=== PATIENT | female | born 1970 | race Caucasian/White ===

== ENCOUNTER → 2024-03-14 | Outpatient (CLI) | payer OTHER ==
--- NOTE | 2024-03-17 12:50 | PE ---
EXAMINATION TYPE: PET CT fusion skull to thigh DATE OF EXAM: 03/14/2024 COMPARISON: There are no prior exams at this location. Prior PET/CT: No prior exams at this location. CLINICAL INDICATION: Female, 53 years old with history of C7A.090 Lung Ca, lung carcinoid TECHNIQUE: Following the intravenous administration of 4.39 mCi 68 gallium dotatate, whole body imag es are performed from the skull base to the midthigh. Images are reviewed on the computer in the cor onal, axial, and sagittal planes. Reconstructed rotating images are created on independent workstati on and reviewed on the computer. A localization and attenuation correction CT is performed in conju nction with the PET scan. DLP: 999.63 mGycm SCAN: Initial FINDINGS: NECK: There is normal uptake within the pituitary. There is normal uptake within the parotid and salivary glands. There is uptake within the thyroid. Uptake within the thyroid is considered normal. However, the thyr oid is enlarged and additional evaluation of the thyroid would be recommended if not previously perfo rmed. Findings are likely related to goiter. THORAX: No suspicious uptake. There is uptake within the stomach hiatal hernia. This can be normal. T here is normal uptake within the adrenal glands. Diffuse uptake within loops of bowel can be normal. There is a nodule within the posterior lateral right lung without abnormal uptake. No suspicious upta ke smaller nodules is identified. ABDOMEN: There is normal mild uptake in the uncinate process of the pancreas. PELVIS: No suspicious uptake within the pelvis. OSSEOUS STRUCTURES: No suspicious uptake. LOCALIZATION CT: Thyroid is prominent likely related to goiter. Lung nodule posterolateral right lung large. COMPARISON: No comparison studies available this location. IMPRESSION: 1. No suspicious focal uptake to suggest a focus for primary or metastatic carcinoid. [facility], Workstation: [facility], 03/17/2024 12:47 PM
== END | disposition home or self-care (01) ==
LOC: RADPETMAIN 08:25
PROVIDERS: ATTEND Internal Medicine
DX: C7A.090 Malignant carcinoid tumor of the bronchus and lung (principal)
CPT/HCPCS: 78815; A9587